=== PATIENT | female | born 1995 | race African-American/Black ===

== ENCOUNTER → 2017-10-02 14:00 | Outpatient (CLI) | payer MEDICAID, SELFPAY ==
--- NOTE | 2017-10-02 14:00 | DT_ITS ---
This patient was seen during an EMR downtime October 01, 2017 - October 08, 2017. This patient may have a combination of paper and electronic documentation or all paper documentation. All documentation is viewable within the e-chart portion of [facility] for each patient visit.
--- NOTE | 2017-10-02 14:00 | DT_ITS ---
This patient was seen during an EMR downtime October 01, 2017 - October 08, 2017. This patient may have a combination of paper and electronic documentation or all paper documentation. All documentation is viewable within the e-chart portion of [employer] for each patient visit.
[2017-10-18 13:18] LABS: HPV HC, High Risk Positive (Negative); HPV Reflexed? YES, CHARGE PATIENT
== END ==
PROVIDERS: Visit Provider Obstetrics & Gynecology
DX: Z12.4 Encounter for screening for malignant neoplasm of cervix (principal); R87.613 High grade squamous intraepithelial lesion on cytologic smear of cervix (HGSIL)
CPT/HCPCS: 87624; 88175; G0145

== ENCOUNTER → 2017-10-30 14:59 | Outpatient (CLI) | payer MEDICAID, SELFPAY ==
--- NOTE | 2017-10-30 10:18 | ECC_PTH ---
PATIENT: DARCI HENDRICKSON LOC: [facility] U#:[id number] AGE/SX: 29/F ROOM: RE10/30/[address]: Dr. Louie Tyler MD : 1995 BED: DIS: SPEC #: [id number] RECD: 10/30/17 14:51 STATUS: RADHA JIMBO #: [id number] CLARICE: 10/30/17 10:[address]: Louie Tyler DEPT: SURGICAL PATHOLOGY RECD BY: Eddie Hernandez ENTERED: 11/01/17 08:01 SP TYPE: SHAILESH MCDONALD DR: No Primary Care Phys Tissues: Endocervical Procedures: Surgery Specimen Level IV HEADER OPERATION: Colposcopy PRE-OP DIAGNOSIS: ASCUS, HPV HR positive, pap 10/02/17 TISSUE SUBMITTED: SHAILESH MICROSCOPIC DIAGNOSIS Endocervix, curettings: Fragments of lower uterine endometrium with proliferative change. Strips of benign superficial endocervix. No evidence of dysplasia. AM:payal 11/02/17 COMMENT Reference is made to the patient?s previous cervical biopsy from 11/05/15 in which mild and focal moderate dysplasia was identified. MICROSCOPIC DESCRIPTION Slides are reviewed. GROSS DESCRIPTION Received in fixative is one container labeled with the patient's name and designated ECC. The specimen consists of multiple irregular fragments of brown-delacruz mucoid tissue that in aggregate measure 2 x 1 x 0.1 cm. The specimen is totally submitted in one cassette. / RY:payal 11/01/17 TC:5 CPT: 45538
== END ==
PROVIDERS: Family Provider Family Medicine; PCP Family Medicine; Visit Provider Obstetrics & Gynecology
DX: R87.610 Atypical squamous cells of undetermined significance on cytologic smear of cervix (ASC-US) (principal)
CPT/HCPCS: 88305

== ENCOUNTER → 2018-05-23 17:52 | Outpatient (CLI) | payer MEDICAID, SELFPAY ==
[2018-05-28 15:05] LABS: HPV Reflexed? NOT INDICATED
== END ==
PROVIDERS: Family Provider Family Medicine; PCP Family Medicine; Referring Provider Obstetrics & Gynecology; Visit Provider Obstetrics & Gynecology
DX: R87.610 Atypical squamous cells of undetermined significance on cytologic smear of cervix (ASC-US) (principal); R87.810 Cervical high risk human papillomavirus (HPV) DNA test positive
CPT/HCPCS: 88175; G0145

== ENCOUNTER → 2019-10-16 13:24 | Outpatient (CLI) | payer MEDICAID, SELFPAY | PROVIDERS: PCP Family Medicine; Visit Provider Obstetrics & Gynecology | DX: Z12.4 Encounter for screening for malignant neoplasm of cervix (principal) ==

== ENCOUNTER → 2020-06-23 12:06 | Outpatient (CLI) | payer MEDICAID, SELFPAY ==
[2020-06-23 15:14] LABS: Absolute Lymphocyte Count 1.35 X10^3/uL (0.83-4.51); Basophil# 0.01 X10^3/uL; Basophil% 0.4 % (0-1); Eosinophil# 0.03 X10^3/uL; Eosinophils% 1.1 % (0-5); Hematocrit 43.6 % (37-47); Hemoglobin 13.9 g/dL (12.0-15.0); Lymphocyte # 1.35 X10^3/ul (4.0); Lymphocyte % 49.1 % (19-41); Mean Corp Hgb Conc 31.9 g/dL (32-36); Mean Corpuscular Hgb 27.5 pg (27.0-32.0); Mean Corpuscular Volume 86.2 fL (81-99); Mean Platelet Vol. 10.6 fl (6.2-12.0); Monocyte# 0.35 X10^3/uL; Monocyte% 12.7 % (0-10); NRBC Flagged by Analyzer 0 % (0-5); Neutrophil # 1.01 X10^3/uL (2.7-7.7); Neutrophil % 36.7 % (47-70); Platelet Count 233 K/mm3 (150-450); RBC Distribution Width CV 12.5 % (11.6-14.6); RBC Distribution Width SD 39.3 fl (35.1-43.9); Red Blood Count 5.06 M/mm3 (4.2-5.4); White Blood Count 2.8 K/mm3 (4.4-11.0)
[2020-06-23 16:15] LABS: AST(SGOT) 12 U/L (15-37); Alanine Aminotransfer ALT/SGPT 19 U/L (13-56); Albumin, Serum 3.9 g/dL (3.2-5.0); Alkaline Phosphatase 81 U/L (45-117); Anion Gap 9 (5-15); BUN 10 mg/dL (7-18); BUN/Creat Ratio 12.7 RATIO (10-20); Calcium,Total 9.1 mg/dL (8.5-10.1); Chloride 105 mmol/L (98-107); Creatinine, Serum 0.79 mg/dL (0.55-1.02); EST Glomerular Filtration Rate 93 mL/min (>60); Est Glom Filt Rate - Afr Amer 113 mL/min (>60); Globulin 3.9 g/dL (2.2-4.2); Glucose 85 mg/dL (74-106); Potassium 3.9 mmol/L (3.5-5.1); Protein, Total 7.8 g/dL (6.4-8.2); Sodium Level 140 mmol/L (136-145)
[2020-06-24 08:32] LABS: Syphilis Antibodies Non-reactive
[2020-06-27 07:59] LABS: Anti-Nuclear Antibody Test Negative (.)
== END ==
PROVIDERS: PCP Family Medicine; Referring Provider Dermatology; Visit Provider Dermatology
DX: L30.9 Dermatitis, unspecified (principal)
CPT/HCPCS: 36415; 80053; 85025; 86038

== ENCOUNTER 2021-05-09 16:01 | Outpatient (CLI) | payer MEDICAID, SELFPAY ==
[2021-05-11 22:06] LABS: Chlamydia By Nucleic Acid AMP Negative (Negative)
[2021-05-12 08:24] LABS: Gonococcus By Nucleic Acid AMP Negative (Negative)
== END 2021-05-09 23:59 | disposition short-term general hospital (02) ==
LOC: LABSPEC 16:03
PROVIDERS: PCP Family Medicine; Visit Provider Obstetrics & Gynecology
DX: Z11.3 Encounter for screening for infections with a predominantly sexual mode of transmission (principal)
CPT/HCPCS: 87491; 87591

== ENCOUNTER → 2021-10-07 | Outpatient (CLI) | payer MEDICAID, SELFPAY | END | disposition home or self-care (01) | LOC: LABSPEC 15:37 | PROVIDERS: PCP Family Medicine; Visit Provider Obstetrics & Gynecology | DX: Z11.3 Encounter for screening for infections with a predominantly sexual mode of transmission (principal); N76.0 Acute vaginitis ==

== ENCOUNTER → 2022-05-12 | Outpatient (CLI) | payer MEDICAID, SELFPAY ==
[2022-05-12 18:26] LABS: HIV - WCH Non-Reactive (Nonreactive); Hepatitis B Surface Antibody Non-Reactive; Syphilis Antibodies Non-reactive
[2022-05-14 10:07] LABS: HEPATITIS B SURFACE AG Negative (Negative); Hep C Antibodies <0.1 s/co ratio (0.0-0.9); Hepatitis A IgM Antibody Negative (Negative); Hepatitis B Core AB IgM Negative (Negative)
[2022-05-14 15:06] LABS: Hepatitis A AB, Total Negative (Negative)
[2022-05-17 16:32] LABS: HPV Reflexed? NOT INDICATED
== END | disposition home or self-care (01) ==
LOC: WOBLAB 16:21
PROVIDERS: PCP Family Medicine; Visit Provider Obstetrics & Gynecology
DX: Z12.4 Encounter for screening for malignant neoplasm of cervix (principal); Z11.3 Encounter for screening for infections with a predominantly sexual mode of transmission
CPT/HCPCS: 36415; 80074; 86703; 86706; 86708; 86780; 88175; G0145

== ENCOUNTER 2023-08-11 20:18 | Emergency (ER) | payer MEDICAID, SELFPAY ==
[2023-08-11 20:18] VITALS: BP 146/97; PULSE 96; RESP 16; TEMP 36.4; O2SAT 98; BMI 30.5
--- NOTE | 2023-08-11 20:29 | ED.VIS.LOWEX ---
HPI History of Present Illness Chief Complaint: Lower Extremity Injury Detail of Chief Complaint: Left knee injury Informant: patient Onset/Context/Timing Onset: Today Narrative Narrative: Patient presents secondary to left knee injury. She states she was wrestling around with another person and believes she twisted her knee. As time went on she started having more more pain to the left knee. Just before leaving her home she turned and twisted her knee and felt as if something ripped further along the medial aspect of her left knee. She has been able to weight-bear but has antalgic gait. She did not take anything for pain stating that even Tylenol tends to make her sleepy. PFSH PFS Medical History (Updated 08/11/23 @ 21:[address] Halina Arnold MD) Asthma Medical History no medical history no medical history Home Medications albuterol sulfate 90 mcg/actuation aerosol inhaler (Ventolin HFA) 2 puff inhalation Q6H PRN PRN Asthma 12/02/15 [History Last Taken Unknown] dupilumab 300 mg/2 mL subcutaneous pen injector (Dupixent) 200 mg subcut .biweekly 08/11/23 [History Last Taken Unknown] glycopyrrolate 1 mg tablet 1 mg PO BID 08/11/23 [History Last Taken Unknown] Allergy/AdvReac Type Severity Reaction Status Date / Time No Known Allergies Allergy Verified 08/11/23 20:21 Surgical History (Updated 08/11/23 @ 20:33 by Karon Meyers) H/O LEEP Social History Smoking Status: Never smoker ROS ROS ED Constitutional Constitutional ED: Denies chills or fever(s) ENT ENT ED: Denies rhinorrhea Cardiovascular Cardiovascular: Denies chest pain Respiratory/Chest Respiratory/Chest: Denies cough or dyspnea Gastrointestinal Gastrointestinal: Denies abdominal pain, nausea or vomiting Musculoskeletal Musculoskeletal: Reports extremity pain; Denies back pain Integumentary Denies Abrasions or rash Neurologic Neurologic: Denies headache(s) or paresthesias Psychiatric Psychiatric: Denies anxiety or depression Allergic/Immunologic Allergic/Immunologic ED: Denies lip swelling or urticaria EXAM Physical Exam Const Vital Signs: 08/11/23 20:18 Temperature 97.6 F L Temperature Source Temporal Pulse Rate 96 Respiratory Rate 16 Blood Pressure 146/97 H Blood Pressure Mean 113 Pulse Ox 98 Oxygen Delivery Method Room Air Positive well nourished and well developed General Appearance ED: well developed HEENT Reports moist mucous membranes Eyes PERRL Neck full ROM Chest Wall inspection of chest normal and palpation of chest normal Resp normal respiratory effort and clear to auscultation bilaterally Cardio regular rate and regular rhythm GI non-tender Extremity Extremity Narrative: Focal tenderness to palpation on the medial aspect of the left knee. No significant edema. Slow purposeful range of motion. She does have increased pain with valgus stress. Good distal pulses are noted with normal sensation. Neuro oriented x3 and moves all extremities Skin Lesions: no lesions Rashes: no rashes MDM MDM MDM Narrative Medical decision making narrative: Left knee x-rays obtained to evaluate for any acute bony derangement. Patient was advised there are a lot of structures in the knee that we cannot see on imaging. Differential diagnosis includes sprain, strain, cartilage injury, meniscal injury. Radiography Diagnostic Testing: Clinical Impression(s) from Imaging Studies Knee X-Ray 08/11/23 20:37 IMPRESSION: Normal x-ray examination of the knee. Electronically Signed: Flako Galeana MD ([place]) at 20:53 EDT Reading Location ID and State: [facility] / [place] , Service support , Treatment and Re-Evaluation Narrative: Left knee x-rays per my interpretation reveal no obvious bony abnormality. Radiology interpretation reviewed and agrees. Test results discussed with the patient. Mike wrap will be applied to her knee and she will be given crutches. She may weight-bear as tolerated. She is referred to orthopedics for follow-up. She states that she has ibuprofen at home that she can use for pain and does not want anything stronger. Discharge Plan Triage Chief Complaint: Lower Extremity Injury ED Provider: Halina Arnold Dx/Rx/DC Orders Clinical Impression: Left knee sprain Instructions: ED Knee Sprain Prescriptions: No Action albuterol sulfate [Ventolin HFA] 1 INHALER inhaler 2 puff inhalation Q6H PRN PRN (Reason: Asthma) Dupixent Pen 300 mg/2 mL pen injector 200 mg subcut .biweekly glycopyrrolate 1 mg tablet 1 mg PO BID Primary Care Provider: Courtney Rao Referrals: Courtney Rao DO [Primary Care Provider] - Ayaz Underwood DO [Med Staff - Active Staff] - 3-5 Days if not improving Disposition Disposition: Home, Self Care
--- NOTE | 2023-08-11 20:37 | RAD_ITS ---
STUDY: X-RAY - LEFT KNEE REASON FOR EXAM: Female, 28 years old. injury, medial pain TECHNIQUE: 4 view(s) of the knee. COMPARISON: None. FINDINGS: Normal visualized distal femur. Normal visualized proximal tibia and fibula. Normal proximal tibiofibular articulation. Normal medial femorotibial compartment. Normal lateral femorotibial compartment. Normal patellofemoral articulation. There is no demonstrated joint effusion. The soft tissue structures are unremarkable. RAD/Knee 4 or More Views IMPRESSION: Normal x-ray examination of the knee. Electronically Signed: Flako Galeana MD ([place]) at 20:53 EDT Reading Location ID and State: [facility] / [place] , Service support ,
[2023-08-11 21:03] VITALS: BP 122/95; PULSE 75; RESP 16; TEMP 36.6; O2SAT 97
== END 2023-08-11 21:18 | disposition home or self-care (01) ==
PROVIDERS: Emergency Provider Emergency Medicine; Visit Provider Emergency Medicine
DX: S83.92XA Sprain of unspecified site of left knee, initial encounter (principal); X50.1XXA Overexertion from prolonged static or awkward postures, initial encounter; Y93.83 Activity, rough housing and horseplay; J45.909 Unspecified asthma, uncomplicated
CPT/HCPCS: 73564; 99283

== ENCOUNTER → 2024-02-13 | Outpatient (CLI) | payer MEDICAID, SELFPAY ==
[2024-02-13 18:23] LABS: T4 Total, Thyroxin 12.5 ug/dL (4.8-13.9)
== END | disposition home or self-care (01) ==
PROVIDERS: Referring Provider Physician Assistant Medical; Visit Provider Physician Assistant Medical
DX: L81.1 Chloasma (principal); L20.89 Other atopic dermatitis; L74.510 Primary focal hyperhidrosis, axilla; Z79.899 Other long term (current) drug therapy
CPT/HCPCS: 36415; 84436; 84443; 84480